=== PATIENT | female | born 1975 | race Caucasian/White ===

== ENCOUNTER 2020-03-16 07:54 | Day surgery (SDC) | payer OTHER ==
[2020-03-16] MEDS ORDERED: LIDOCAINE HCL/PF 2% SDV 5ML VIAL ONE (07:59)
[2020-03-16] MEDS ORDERED: PROPOFOL 20 ML ONE ×2 (07:59)
[2020-03-16 08:31] VITALS: BMI 22.4
[2020-03-16 10:10] VITALS: BP 101/60; PULSE 65; TEMP 98.9
--- NOTE | 2020-03-17 13:33 | PATH ---
Surgical Pathology Report Patient Name: RODRICK PETTIT [facility]. Rec. #: [id number] /Age/Gender: 1975 (Age: 44) / F Account: [id number] Location: [facility] Taken: 03/16/2020 Received: 03/16/2020 Reported: 03/17/2020 Physicians: Leeroy Alvarez M.D. Specimen(s) Received A: SECOND PORTION DUODENUM B: ANTRUM C: ESOPHAGUS Clinical History Reflux Postoperative diagnosis: Mild gastritis Final Diagnosis A. SECOND PORTION OF DUODENUM, BIOPSY: DUODENAL MUCOSA WITH NO SIGNIFICANT PATHOLOGIC CHANGE. NO HISTOLOGIC EVIDENCE OF INTRAEPITHELIAL LYMPHOCYTOSIS. B. ANTRUM, BIOPSY: GASTRIC MUCOSA WITH ACTIVE CHRONIC GASTRITIS AND INTESTINAL METAPLASIA. IMMUNOSTAIN FOR H. PYLORI IS POSITIVE. NEGATIVE FOR DYSPLASIA. C. ESOPHAGUS, BIOPSY: SQUAMOUS MUCOSA WITH NO SIGNIFICANT PATHOLOGIC CHANGE. NO HISTOLOGIC EVIDENCE OF EOSINOPHILIC ESOPHAGITIS. Electronically Signed Maira Zavala M.D. Gross Description A. Received in formalin, labeled "biopsy second portion of duodenum" are 2 holloway, irregular portions of soft tissue averaging 0.4 cm. in greatest dimension. The specimens are submitted in toto in one cassette. B. Received in formalin, labeled "biopsy gastric antrum" are 2 holloway, irregular portions of soft tissue averaging 0.5 cm. in greatest dimension. The specimens are submitted in toto in one cassette. C. Received in formalin, labeled "biopsy esophagus" is a holloway, irregular portion of soft tissue measuring 0.2 cm. in greatest dimension. The specimen is submitted in toto in one cassette. /03/16/2020 saudi/03/16/2020
== END 2020-03-16 10:15 | disposition home or self-care (01) ==
LOC: FASU-ENDO 07:54
PROVIDERS: ATTEND Internal Medicine Gastroenterology
PROC: 0DB68ZX Excision of Stomach, Via Natural or Artificial Opening Endoscopic, Diagnostic (ICD-10-PCS; 2020-03-16)
PROC: 0DB98ZX Excision of Duodenum, Via Natural or Artificial Opening Endoscopic, Diagnostic (ICD-10-PCS; principal; 2020-03-16 09:19)
DX: K29.50 Unspecified chronic gastritis without bleeding (principal); K31.9 Disease of stomach and duodenum, unspecified; R12 Heartburn; R07.0 Pain in throat
CPT/HCPCS: 84703; 88305-TC; 88342-TC

== ENCOUNTER 2023-09-18 07:39 | Day surgery (SDC) | payer OTHER ==
[2023-09-16 12:33] VITALS: BMI 24.5
[2023-09-18 10:19] VITALS: TEMP 97
[2023-09-18 10:21] VITALS: RESP 18
[2023-09-18 10:22] VITALS: BP 121/63; PULSE 94
== END 2023-09-18 10:34 | disposition home or self-care (01) ==
LOC: FASU-ENDO 07:39
PROVIDERS: ATTEND Internal Medicine Gastroenterology
PROC: 0DBH8ZX Excision of Cecum, Via Natural or Artificial Opening Endoscopic, Diagnostic (ICD-10-PCS; principal; 2023-09-18 09:43)
DX: Z12.11 Encounter for screening for malignant neoplasm of colon (principal); K63.5 Polyp of colon
CPT/HCPCS: 81025; 88305-TC

== ENCOUNTER 2024-01-20 07:45 | Inpatient (IN) | payer OTHER ==
[2024-01-20 07:54] VITALS: BMI 24.0
[2024-01-20 08:18] LABS: HCG,QUALITATIVE URINE Negative
[2024-01-20 08:21] LABS: EPITHELIAL CELLS 0-5 /hpf
[2024-01-20] MEDS: SODIUM CHLORIDE 1,000 ML IV STA (08:30)
[2024-01-20] MEDS: ACETAMINOPHEN 1000 MG/100 ML BAG IVPB ONE ×2 (08:30→23:53)
[2024-01-20] MEDS ORDERED: ACETAMINOPHEN INJECTION 100 ML IVPB ONE (08:33)
[2024-01-20 08:46] LABS: HEMATOCRIT 43.6 % (32.4-45.2); HEMOGLOBIN 14.3 G/dL (10.7-15.3); MCH 29.1 pg (25.7-33.7); MCHC 32.8 g/dl (32.0-36.0); MEAN CELL VOLUME 88.7 fl (80-96); MEAN PLT VOLUME 9.2 fl (7.5-11.1); PLATELET COUNT 185.1 10^3/uL (134-434); RBC 4.91 10^6/uL (3.60-5.2); RDW 13.4 % (11.6-15.6); WHITE BLOOD COUNT 6.3 10^3/uL (4.0-10.8)
[2024-01-20 09:14] LABS: ALBUMIN 4.5 g/dl (3.4-5.0); ALK PHOS 58 U/L (45-117); ANION GAP 10 mmol/L (4-13); BILIRUBIN,TOTAL 0.5 mg/dl (0.2-1); CALCIUM 9.9 mg/dl (8.5-10.1); CHLORIDE 102 mmol/L (98-107); CO2 27 mmol/L (21-32); CREATININE 0.8 mg/dl (0.6-1.3); GLUCOSE,RANDOM 94 mg/dl (74-106); POTASSIUM 4.1 mmol/L (3.5-5.1); SGOT/AST 15 U/L (15-37); SGPT/ALT 7 U/L (7-52); SODIUM 139 mmol/L (136-145); TOT PROT 7.3 g/dl (6.4-8.2)
[2024-01-20 09:30] LABS: PLATELET ESTIMATE ADEQUATE
[2024-01-20 12:06] LABS: ACTIVATED PTT 34.5 SECONDS (25.2-36.5); INR 1.16 (0.83-1.09); PROTHROMBIN TIME (PATIENT) 13.2 SEC (9.7-13.0)
[2024-01-20] MEDS ORDERED: cefTRIAXone SODIUM 1 GM VIAL ONE (12:16)
[2024-01-20] MEDS: CEFTRIAXONE 1 GM in DEXTROSE 5%-WATER - 50 ML IVPB ONE (12:27)
[2024-01-20] MEDS: SODIUM CHLORIDE 1,000 ML IV SCH (12:27)
[2024-01-20] MEDS ORDERED: HEPARIN NA (PORCINE) 5,000 UNITS/ML 1ML VIAL SQ SCH (14:00)
[2024-01-20] MEDS: HEPARIN NA (PORCINE) 5,000 UNITS/ML 1ML VIAL SQ SCH (23:12)
[2024-01-20] MEDS: hydrOXYzine PAMOATE 25 MG CAPSULE (FP) PO ONE (23:55)
[2024-01-21 08:32] LABS: HEMATOCRIT 36.7 % (32.4-45.2); HEMOGLOBIN 12.2 GM/dL (10.7-15.3); MCH 29.2 pg (25.7-33.7); MCHC 33.2 g/dl (32.0-36.0); MEAN PLT VOLUME 9.2 fl (7.5-11.1); PLATELET COUNT 163 10^3/uL (134-434); RBC 4.17 M/mm3 (3.60-5.2); RDW 12.1 % (11.6-15.6)
[2024-01-21 08:36] LABS: INR 1.14 (0.83-1.09); PROTHROMBIN TIME (PATIENT) 12.8 SEC (9.7-13.0)
[2024-01-21 08:38] LABS: POTASSIUM 4.2 mmol/L (3.5-5.1)
[2024-01-21 08:39] LABS: ACTIVATED PTT 34.4 SECONDS (25.2-36.5)
[2024-01-21 08:42] LABS: ALBUMIN 3.2 g/dl (3.4-5.0); BLOOD UREA NITROGEN 12.9 mg/dL (7-18); CALCIUM 8.5 mg/dL (8.5-10.1)
[2024-01-21 08:43] LABS: MAGNESIUM 1.7 mg/dL (1.8-2.4)
[2024-01-21 08:45] LABS: CREATININE 0.5 mg/dL (0.55-1.3); PHOSPHOROUS 3.7 mg/dL (2.5-4.9)
[2024-01-21 08:47] LABS: BILIRUBIN,TOTAL 0.6 mg/dL (0.2-1); TOT PROT 6.6 g/dl (6.4-8.2)
[2024-01-21] MEDS ORDERED: DEXTROSE 50%-WATER - 25 GM/50 ML VIAL IVPUSH ONE (09:23)
[2024-01-21] MEDS: DEXTROSE 50%-WATER 25 GM/50 ML DISP.SYRIN IVPUSH ONE ×2 (09:26→09:41)
[2024-01-21] MEDS: DEXTROSE 5%-NORMAL SALINE 1,000 ML IV SCH ×2 (09:27→18:06)
[2024-01-21] MEDS: CEFTRIAXONE 1 GM in DEXTROSE 5%-WATER - 50 ML IVPB SCH (09:38)
[2024-01-21] MEDS: MAGNESIUM 2GM/50ML STERILE WATER IVPB IVPB ONE (12:24)
[2024-01-21] MEDS ORDERED: HEPARIN NA (PORCINE) 5,000 UNITS/ML 1ML VIAL SQ SCH (22:00)
[2024-01-21] MEDS: ACETAMINOPHEN 1000 MG/100 ML BAG IVPB PRN (23:19)
[2024-01-22 09:24] LABS: INR 1.03 (0.83-1.09); PROTHROMBIN TIME (PATIENT) 11.8 SEC (9.7-13.0)
[2024-01-22 09:35] LABS: POTASSIUM 3.7 mmol/L (3.5-5.1)
[2024-01-22 09:36] LABS: HEMATOCRIT 38.3 % (32.4-45.2); HEMOGLOBIN 13.2 GM/dL (10.7-15.3); MCH 29.6 pg (25.7-33.7); MCHC 34.4 g/dl (32.0-36.0); MEAN PLT VOLUME 8.7 fl (7.5-11.1); PLATELET COUNT 171 10^3/uL (134-434); RBC 4.46 M/mm3 (3.60-5.2); RDW 12.4 % (11.6-15.6); WHITE BLOOD COUNT 4.1 K/mm3 (4.0-10.0)
[2024-01-22 10:03] LABS: BLOOD UREA NITROGEN 8.8 mg/dL (7-18)
[2024-01-22 10:05] LABS: ALBUMIN 3.3 g/dl (3.4-5.0); CALCIUM 8.9 mg/dL (8.5-10.1); MAGNESIUM 1.9 mg/dL (1.8-2.4)
[2024-01-22 10:07] LABS: CREATININE 0.7 mg/dL (0.55-1.3)
[2024-01-22 10:09] LABS: BILIRUBIN,TOTAL 0.2 mg/dL (0.2-1); TOT PROT 6.8 g/dl (6.4-8.2)
[2024-01-22 11:36] LABS: ANISOCYTOSIS 0; HELMET CELLS 0; HOWELL-JOLLY BODIES 0; MACROCYTOSIS 0; OVALOCYTE 0; ROULEAU 0; SICKELED CELLS 0; TARGET CELLS 0; TEAR DROP CELLS 0; TOXIC GRANULATION 0
[2024-01-22] MEDS ORDERED: ONDANSETRON 4 MG/2 ML VIAL IVPUSH PRN ×2 (15:25→18:14)
[2024-01-22] MEDS ORDERED: LACTATED RINGERS SOLUTION 1,000 ML IV SCH (15:30)
[2024-01-22] MEDS ORDERED: MIDAZOLAM HCL 2 MG/2 ML SINGLE DOSE VIAL ONE (16:49)
[2024-01-22] MEDS ORDERED: PROPOFOL 20 ML ONE (16:49)
[2024-01-22] MEDS: ceFAZolin SODIUM 1 GM VIAL IVPB ONE (17:05)
[2024-01-22] MEDS ORDERED: KETOROLAC TROMETHAMINE 30 MG/1 ML VIAL ONE (17:24)
[2024-01-22] MEDS ORDERED: DEXAMETHASONE SOD PHOSPHATE 4 MG/1 ML VIAL ONE (17:24)
[2024-01-22] MEDS ORDERED: ONDANSETRON 4 MG/2 ML VIAL ONE (17:24)
[2024-01-22] MEDS ORDERED: DEXTROSE 50%-WATER - 25 GM/50 ML VIAL IVPUSH ONE (18:14)
[2024-01-22] MEDS: LACTATED RINGERS SOLUTION 1,000 ML IV SCH (18:26)
[2024-01-22] MEDS: ACETAMINOPHEN 325 MG TABLET (FP) PO ONE (22:40)
[2024-01-23] MEDS ORDERED: ACETAMINOPHEN 325 MG TABLET (FP) PO PRN (07:14)
[2024-01-23 09:45] VITALS: BP 128/82; PULSE 72; RESP 20; TEMP 98.4
[2024-01-23] MEDS ORDERED: DEXTROSE 5%-NORMAL SALINE 1,000 ML IV SCH (10:00)
[2024-01-23 10:28] LABS: BASO % 0.3 % (0-2.0); EOS % 0.9 % (0-4.5); HEMATOCRIT 35.7 % (32.4-45.2); HEMOGLOBIN 12.4 GM/dL (10.7-15.3); LYMPH % 31.6 % (8-40); MCH 29.7 pg (25.7-33.7); MCHC 34.7 g/dl (32.0-36.0); MEAN CELL VOLUME 85.7 fl (80-96); MEAN PLT VOLUME 9.1 fl (7.5-11.1); MONO % 13.4 % (3.8-10.2); NEUT % 53.8 % (42.8-82.8); PLATELET COUNT 173 10^3/uL (134-434); RBC 4.17 M/mm3 (3.60-5.2); RDW 12.2 % (11.6-15.6); WHITE BLOOD COUNT 5.1 K/mm3 (4.0-10.0)
[2024-01-23 10:52] LABS: POTASSIUM 3.6 mmol/L (3.5-5.1)
[2024-01-23 10:54] LABS: ALBUMIN 2.9 g/dl (3.4-5.0); BLOOD UREA NITROGEN 11.3 mg/dL (7-18); CALCIUM 8.6 mg/dL (8.5-10.1); MAGNESIUM 1.8 mg/dL (1.8-2.4)
[2024-01-23 10:59] LABS: BILIRUBIN,TOTAL 0.2 mg/dL (0.2-1); TOT PROT 6.4 g/dl (6.4-8.2)
[2024-01-23 11:01] LABS: CREATININE 0.6 mg/dL (0.55-1.3)
== END 2024-01-23 11:04 | disposition home or self-care (01) | DRG 659 ==
LOC: FER 07:45 → J8W 15:19
PROVIDERS: ADMIT Urology; ATTEND Nurse Practitioner Family
PROC: 0TC78ZZ Extirpation of Matter from Left Ureter, Via Natural or Artificial Opening Endoscopic (ICD-10-PCS; principal; 2024-01-22 14:00)
PROC: 0T778DZ Dilation of Left Ureter with Intraluminal Device, Via Natural or Artificial Opening Endoscopic (ICD-10-PCS; 2024-01-22 14:00)
PROC: BT1FZZZ Fluoroscopy of Left Kidney, Ureter and Bladder (ICD-10-PCS; 2024-01-22 14:00)
DX: N13.2 Hydronephrosis with renal and ureteral calculous obstruction (principal); U07.1 COVID-19; I31.39 Other pericardial effusion (noninflammatory); K21.9 Gastro-esophageal reflux disease without esophagitis
CPT/HCPCS: 0241U-QW; 36415; 74177-TC; 76000-TC-FY; 80053; 81003; 81015; 82360; 82962; 83540; 83550; 83690; 83735; 84100; 84484; 84703; 85025; 85027; 85610; 85730; 86850; 86900; 86901; 87040; 87086; 88300-TC; 93005; 93306-TC; 94760; 99285-25; C2617; J0131; J1644; Q9967